=== PATIENT | male | born 1975 | race American Indian/Alaskan Native ===

== ENCOUNTER 2021-12-30 05:23 | Emergency (ER) | payer OTHER ==
[2021-12-30] MEDS ORDERED: ACETAMINOPHEN 500 MG TAB PO ONE (06:32)
[2021-12-30] MEDS ORDERED: amLODIPine 5 MG TAB PO ONE (06:32)
--- NOTE | 2021-12-30 06:59 | Emergency Department Report ---
ED Headache HPI - General Chief Complaint: Headache Stated Complaint: HIGH BP, BLURRY VISION Time Seen by Provider: 12/30/21 06:03 Source: patient Exam Limitations: no limitations - History of Present Illness Initial Comments: 46-year-old male with a past medical history of hypertension noncompliant with medications x1 month presents to the hospital complaining of intermittent frontal headache for the past 2 days. Pain has been 8/10 at its worse and is currently 3/10 in intensity. No aggravating relieving factors reported. Patient had his blood pressure checked at work today and it was elevated so he came to the ER for evaluation. Patient does complain of intermittent blurred vision but denies progression currently. He also denies neck pain, nausea, vomiting, focal weakness, chest pain, or shortness of breath. He is supposed to take Norvasc 10 mg. Allergies/Adverse Reactions: Allergies No Known Allergies Allergy (Unverified 12/30/21 05:48) Home Medications: Ambulatory Orders Amlodipine Besylate [Norvasc] 10 mg PO DAILY #30 tab 12/30/21 ED Review of Systems ROS: Stated complaint: HIGH BP, BLURRY VISION Other details as noted in HPI Comment: All other systems reviewed and negative ED Past Medical Hx - Past Medical History Hx Hypertension: Yes - Social History Smoking Status: Unknown if ever smoked - Medications Home Medications: Home Medications Medication Instructions Recorded Confirmed Last Taken Type Amlodipine Besylate [Norvasc] 10 mg PO DAILY #30 tab 12/30/21 Unknown Rx ED Physical Exam - General Limitations: No Limitations - Other Other exam information: General: No acute distress Head: Atraumatic Eyes: normal appearance ENT: Moist mucous membranes Neck: Normal appearance, no midline tenderness Chest: Clear to auscultation bilaterally CV: Regular rate and rhythm Abdomen: Soft, normal bowel sounds, nontender, nondistended, no rebound or guarding Back: Normal inspection Extremity: Normal inspection, full range of motion Neuro: Alert O x 3, no facial asymmetry, speech clear, no gross motor sensory deficit, [id number] function intact Psych: Appropriate behavior Skin: No rash ED Course Vital Signs 12/30/21 12/30/21 12/30/21 05:45 06:04 06:15 Temperature 97.8 F Pulse Rate 78 82 76 Respiratory 18 21 17 Rate Blood Pressure 172/106 Blood Pressure 169/111 [Right] O2 Sat by Pulse 99 98 98 Oximetry 12/30/21 12/30/21 12/30/21 06:31 06:43 06:45 Temperature Pulse Rate 73 69 Respiratory 20 18 17 Rate Blood Pressure 158/105 158/105 Blood Pressure [Right] O2 Sat by Pulse 97 99 96 Oximetry 12/30/21 12/30/21 12/30/21 07:01 07:15 07:31 Temperature Pulse Rate 67 77 67 Respiratory 15 20 18 Rate Blood Pressure 161/109 161/109 162/102 Blood Pressure [Right] O2 Sat by Pulse 99 96 97 Oximetry 12/30/21 12/30/21 12/30/21 07:45 08:01 08:15 Temperature Pulse Rate 87 75 70 Respiratory 17 18 18 Rate Blood Pressure 155/102 176/71 173/79 Blood Pressure [Right] O2 Sat by Pulse 97 95 98 Oximetry - Reevaluation(s) Reevaluation #1: 12/30/21 08:48 BP currently 133/74 heart rate 76 after receiving Norvasc 10 mg. Patient also received Tylenol 1 g p.o. and is currently pain-free ED Medical Decision Making - Lab Data Result diagrams: 12/30/21 07:08 12/30/21 07:08 Lab Results 12/30/21 12/30/21 Range/Units 07:08 07:08 WBC 5.5 (4.5-11.0) K/mm3 RBC 4.24 (3.65-5.03) M/mm3 Hgb 13.3 (11.8-15.2) gm/dl Hct 39.4 (35.5-45.6) % MCV 93 (84-94) fl MCH 32 (28-32) pg MCHC 34 (32-34) % RDW 14.7 (13.2-15.2) % Plt Count 174 (140-440) K/mm3 Lymph % (Auto) 24.0 (13.4-35.0) % [place] % (Auto) 9.4 H (0.0-7.3) % Eos % (Auto) 0.4 (0.0-4.3) % Baso % (Auto) 0.5 (0.0-1.8) % Lymph # (Auto) 1.3 (1.2-5.4) K/mm3 [place] # (Auto) 0.5 (0.0-0.8) K/mm3 Eos # (Auto) 0.0 (0.0-0.4) K/mm3 Baso # (Auto) 0.0 (0.0-0.1) K/mm3 Seg Neutrophils % 65.7 (40.0-70.0) % Seg Neutrophils # 3.6 (1.8-7.7) K/mm3 Sodium 141 (137-145) mmol/L Potassium 4.6 (3.6-5.0) mmol/L Chloride 104.0 (98-107) mmol/L Carbon Dioxide 25 (22-30) mmol/L Anion Gap 17 mmol/L BUN 10 (9-20) mg/dL Creatinine 1.1 (0.8-1.3) mg/dL Estimated GFR > 60 ml/min BUN/Creatinine Ratio 9 % Glucose 83 (75-100) mg/dL Calcium 9.3 (8.4-10.2) mg/dL - EKG Data -: EKG Interpreted by Co EKG shows normal: sinus rhythm, ST-T waves (LVH, no ischemia or ST elevation) Rate: normal - EKG Data When compared to previous EKG there are: previous EKG unavailable - Medical Decision Making 46-year-old male presents with headache x2 days uncontrolled hypertension se condary medication noncompliance. Labs unremarkable. Headache was mild and improved with Tylenol and BP reduction after receiving amlodipine. Patient will be discharged home with PMD follow-up and prescribed 1 month supply amlodipine - Differential Diagnosis Hypertensive emergency, hypertensive urgency Critical Care Time: No Critical care attestation.: If time is entered above; I have spent that time in minutes in the direct care of this critically ill patient, excluding procedure time. ED Disposition Clinical Impression: Uncontrolled hypertension, Headache, Noncompliance with medication regimen Disposition: HOME / SELF CARE / HOMELESS Is pt being admited?: No Does the pt Need Aspirin: No Condition: Stable Instructions: Hypertension (ED), Hypertension, Adult Additional Instructions: Take the medication as prescribed. Take Tylenol as needed for pain. follow-up with your doctor or doctor/clinic provided. Return if symptoms worsen as indicated by your discharge instructions. Prescriptions: Amlodipine Besylate [Norvasc] 10 mg PO DAILY #30 tab Referrals: PRIMARY CARE, [Primary Care Provider] - 3-5 Days
[2021-12-30 07:39] LABS: BUN/Creatinine Ratio 9; Blood Urea Nitrogen 10 mg/dL (9-20); Calcium 9.3 mg/dL (8.4-10.2); Hemolysis Index 6
[2021-12-30 07:57] LABS: Basophils % (Auto) 0.5 % (0.0-1.8); Eosinophils % (Auto) 0.4 % (0.0-4.3); Hematocrit 39.4 % (35.5-45.6); Hemoglobin 13.3 gm/dl (11.8-15.2); Lymphocytes # (Auto) 1.3 K/mm3 (1.2-5.4); Mean Corpuscular HGB Conc 34 % (32-34); Mean Corpuscular Volume 93 fl (84-94); Monocytes # (Auto) 0.5 K/mm3 (0.0-0.8); Monocytes % (Auto) 9.4 % (0.0-7.3); Platelet Count 174 K/mm3 (140-440); Red Blood Count 4.24 M/mm3 (3.65-5.03); Red Cell Distribution Width 14.7 % (13.2-15.2)
[2021-12-30 09:27] VITALS: BP 170/98
--- NOTE | 2021-12-31 10:13 | Electrocardiograph Report ---
[facility] Test Date: 2021-12-30 Test Time: 06:05:37 Pat Name: NADIA FROST Department: Room: Gender: M Manager Inventory Control: MAYA WEISS : 1975 Requested By: CHANDA NASH Order Number: [id number] Reading MD: Christ Griffith Measurements Intervals [place] Rate: 71 P: 23 MA: 202 QRS: -10 QRSD: 79 T: 54 QT: 405 QTc: 441 Interpretive Statements Sinus rhythm Borderline prolonged MA interval nonspecific st-t No previous ECG available for comparison Electronically Signed On 12-31-2021 10:13:30 EDT by Christ Griffith
== END 2021-12-30 09:28 | disposition home or self-care (01) ==
LOC: ED 05:23
DX: I10 Essential (primary) hypertension (principal); R51.9 Headache, unspecified; Z91.14 Patient's other noncompliance with medication regimen
CPT/HCPCS: 36415; 80048; 85025; 93005; 99283